=== PATIENT | male | born 1950 | race Caucasian/White ===

== ENCOUNTER 2017-12-26 14:10 | Emergency (ER) | payer MEDICARE, SELFPAY ==
[2017-12-26 14:12] VITALS: BP 169/84; PULSE 60; PULSE 64; RESP 14; RESP 16; TEMP 36.9; O2SAT 97; O2SAT 98; BMI 31.3
--- NOTE | 2017-12-26 15:07 | EKG12_ITS ---
Test Reason : REPEAT CP Blood Pressure : / mmHG Vent. Rate : 055 BPM Atrial Rate : 055 BPM P-R Int : 168 ms QRS Dur : 078 ms QT Int : 400 ms P-R-T Axes : 043 025 042 degrees QTc Int : 382 ms Sinus bradycardia Otherwise normal ECG Confirmed by ABE MARTI MD ([id number]), metropolitan editor GALI COTO ([id number] on 12/29/2017 2:46:26 PM Referred By: MIGUELANGEL Confirmed By:ABE MARTI MD
--- NOTE | 2017-12-26 15:09 | ED.VISSUMM ---
- ER Visit Summary Date of Service: 12/26/17 Chief Complaint: Chest fluttering and chest pain History of Present Illness: The patient is a 67 M with known history of coronary artery disease with a stent to the RCA placed in January 2015. Patient states for the past 3 days has had intermittent fluttering sensation in his chest associated with lightheadedness and numbness in his hands. This resolves after just a few minutes. After the fluttering resolves he then develops a pressure-like pain in the left upper chest and axilla that spontaneously resolved after a few minutes. Patient denies sensation that he is going to pass out. He does not feel like his heart is racing fast, just very irregular. Today patient went to get the trash can from the street and noted he got short of breath with this activity which is not normal for him. Physical Examination: Blood pressure is 169/84, temperature 98.4, heart rate 60, respiratory rate 14, pulse ox 97% on room air. Head and neck examination is unremarkable. Heart is regular rate and rhythm. Lung sounds are clear. Abdomen is soft and nontender. Lower extremity examination reveals no significant edema or calf tenderness. He has strong distal pulses throughout. Test Results: EKG is sinus at 63 with no sign of acute ischemia. Repeat EKG is sinus bradycardia at [address] changes. CBC and chemistry studies are significant only for creatinine 1.45. Troponin is less than 0.02. Portable chest x-ray reveals questionable COPD without active disease. Emergency Department Course and Treatment: Patient received 3 additional baby aspirin as he has already taken one this morning. I recommended hospitalization for cardiac monitoring to see if we can catch any of these episodes of palpitations as well as further cardiac evaluation. At this time patient is refusing hospital admission. We discussed the risks and he understands. 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 DOM score: 3/7 Treatment Plan: [] Disposition: Discharge, AMA Impression: 1. Chest pain 2. Palpitations This note was generated with [employer] dictation software. It may contain incorrect words, spelling, and punctuation that were not noted in review of the chart prior to signing ED Disposition - Plan for ED Patient: Disposition: Home or Assisted Living Chief Complaint: Chest Pain Instructions: ED Chest Pain Atypical Unkn Cause Referrals: Jorge Ramirez MD [STAFF PHYSICIAN] - As soon as possible Jasmyn Juan MD [Primary Care Provider] -
--- NOTE | 2017-12-26 15:11 | EKG12_ITS ---
Test Reason : CP Blood Pressure : / mmHG Vent. Rate : 063 BPM Atrial Rate : 063 BPM P-R Int : 170 ms QRS Dur : 078 ms QT Int : 380 ms P-R-T Axes : 055 031 046 degrees QTc Int : 388 ms Normal sinus rhythm Normal ECG Confirmed by FIGUEROA SMITH, ABE ([id number]), city editor GALI COTO ([id number]) on 12/29/2017 2:46:38 PM Referred By: OKRI Confirmed By:ABE MARTI MD
--- NOTE | 2017-12-26 15:12 | RAD_ITS ---
STUDY: X-RAY CHEST REASON FOR EXAM: Male, 67 years old. Chest discomfort. TECHNIQUE: Single AP portable view of the chest. COMPARISON: None. FINDINGS: Telemetry wires overlie the chest. There is hyperinflation of the lungs consistent with chronic obstructive lung disease (COPD). There is no focal mass or infiltrate. There is no demonstrated pleural abnormality. Normal size heart. Normal mediastinum and kvng. Normal visualized pulmonary arteries. There is atherosclerotic calcification of the aortic arch with tortuosity. The thoracic spine is obscured by the mediastinum. Normal visualized ribs, clavicles, and shoulders. There is no demonstrated abnormality of the visualized soft tissue structures of the upper abdomen. RAD/Chest 1 View (Portable) IMPRESSION: Question COPD without acute cardiopulmonary disease. Electronically Signed: Oli Campbell DO at 15:40 EDT Tel [phone], Service support ,
[2017-12-26 15:24] LABS: Absolute Lymphocyte Count 1.14 X10^3/ul (0.83-4.51); Absolute Neutrophil Count 3.1 X10^3/uL (2.0-7.7); Basophil# 0.05 X10^3/uL; Eosinophil# 0.32 X10^3/uL; Eosinophils% 6.1 % (0-5); Hematocrit 41.8 % (40-54); Lymphocyte # 1.14 X10^3/ul (4.0); Lymphocyte % 21.7 % (19-41); Mean Corp Hgb Conc 33.5 g/gl (32-36); Mean Corpuscular Hgb 27.6 pg (27.0-32.0); Mean Corpuscular Volume 82.3 fL (80-94); Mean Platelet Vol. 9.6 fl (6.2-12.0); Monocyte# 0.62 X10^3/uL; Monocyte% 11.8 % (0-10); Neutrophil # 3.11 X10^3/uL (2.7-7.7); Neutrophil % 59.2 % (47-70); Platelet Count 213 K/mm3 (150-450); RBC Distribution Width CV 12.9 % (11.6-14.6); RBC Distribution Width SD 38.2 fl (35.1-43.9); Red Blood Count 5.08 M/mm3 (4.6-6.2); White Blood Count 5.3 K/mm3 (4.4-11.0)
[2017-12-26] MEDS: Aspirin 81 MG TAB.CHEW 243 MG PO (15:26)
[2017-12-26] MEDS: 0.9% Normal Saline 1,000 ML 150 ML IV (15:26)
[2017-12-26 15:30] LABS: POSITIVE COUNT NO; POSITIVE DIFFERENTIAL NO; POSITIVE MORPHOLOGY NO
[2017-12-26 15:40] LABS: Anion Gap 7 (5-15); BUN 10 mg/dL (7-18); BUN/Creat Ratio 6.9 RATIO (10-20); Calcium,Total 9.1 mg/dL (8.5-10.1); Chloride 105 mmol/L (98-107); Creatinine, Serum 1.45 mg/dL (0.70-1.30); EST Glomerular Filtration Rate 51 mL/min (>60); Est Glom Filt Rate - Afr Amer 62 mL/min (>60); Estimated Creatinine Clearance 47.17 ml/min; Glucose 99 mg/dL (74-106); Potassium 3.9 mmol/L (3.5-5.1); Sodium Level 140 mmol/L (136-145)
--- NOTE | 2017-12-26 16:08 | ED.DEP ---
ED Disposition - Plan for ED Patient: Disposition: Home or Assisted Living Chief Complaint: Chest Pain Instructions: ED Chest Pain Atypical Unkn Cause Referrals: Jasmyn Juan MD [Primary Care Provider] - Jorge Ramirez MD [STAFF PHYSICIAN] - As soon as possible
[2017-12-26 16:20] VITALS: BP 162/89; PULSE 89; RESP 14; O2SAT 99
== END 2017-12-26 16:24 | disposition home or self-care (01) ==
PROVIDERS: Emergency Provider Emergency Medicine; Family Provider Internal Medicine; PCP Internal Medicine
DX: R07.9 Chest pain, unspecified (principal); R00.2 Palpitations; I10 Essential (primary) hypertension; I25.10 Atherosclerotic heart disease of native coronary artery without angina pectoris; E78.00 Pure hypercholesterolemia, unspecified; Z87.891 Personal history of nicotine dependence; Z95.5 Presence of coronary angioplasty implant and graft
CPT/HCPCS: 71045; 80048; 84484; 85025; 93005; 96360; 99285; J7050; A4216

== ENCOUNTER → 2018-06-06 11:27 | Outpatient (CLI) | payer MEDICARE, SELFPAY | LOC: PSN 11:27 | PROVIDERS: Family Provider Internal Medicine; PCP Internal Medicine; Visit Provider Clinical Nurse Specialist | DX: R00.2 Palpitations (principal) | CPT/HCPCS: 93225; 93226 ==